=== PATIENT | female | born 1970 | race Caucasian/White ===

== ENCOUNTER 2016-08-01 15:54 | Emergency (ER) | payer SELFPAY ==
[2016-08-01 16:02] VITALS: BMI 31.6
--- NOTE | 2016-08-01 16:21 | DR.GENAD ---
HPI - PCP Primary Care Physician: none - Complaint/Symptoms Chief Complaint Doctors Comments: Headache, feeling dizzy and light headed. 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 Has a history of hypertension was treated for one month but has not had any money and has not been treated for a while. Chief Complaint:: about an hour ago pt started feeling dizzy light headed and shaking with a bad head ache. - Source History Provided: Patient - Mode of Arrival Mode of Arrival: Ambulatory - Timing Onset of Chief Complaint: 08/01/16 PMH - PMH Past Medical History: Yes Past Medical History: Anxiety, Hypertension Past Surgical History: No Surgical History: No History - Family History History of Family Medical Conditions: Yes Family Medical History: Diabetes Mellitus, Hypertension - Social History Does patient currently use any type of tobacco product: Yes Have you used tobacco products in the last 12 months: Yes Type of Tobacco Use: Cigarettes How many years tobacco product used: 20 Does any household member use tobacco: No Alcohol Use: None Do you use any recreational Drugs:: No Lives With: Family Lives Where: Home - infectious screening In the last 2 months have you had wt loss of >10#?: NO Have you had fever, night sweats or hemotysis?: No Have you traveled outside the country in the last 6 months?: No Isolation: Standard ROS - Review of Systems Constitutional: No Symptoms Reported Eyes: No Symptoms Reported ENTM: No Symptoms Reported Respiratoy: No Symptoms Reported Cardiovascular: No Symptoms Reported Gastrointestinal/Abdominal: No Symptoms Reported Genitourinary: No Symptoms Reported Neurological: No Symptoms Reported Musculoskeletal: No Symptoms Reported Integumentary: No Symptoms Reported Hematologic/Lymphatic: No Symptoms Reported Endocrine: No Symptoms Reported Psychiatric: No Symptoms Reported All Other Systems: Reviewed and Negative PE - Vital Signs Vitals: Temperature 98.5 F Pulse Rate 90 Respiratory Rate 18 Blood Pressure [Right Arm] 171/49 Blood Pressure [Standing] 139/79 Blood Pressure [Sitting] 143/68 Blood Pressure [Lying] 139/79 Blood Pressure 155/104 O2 Sat by Pulse Oximetry 99 - General Limitations: No Limitations General Appearance: Alert, In No Apparent Distress - Head Head Exam: Normal Inspection - Eyes Eye exam: Normal Appearance, PERRL, EOMI - ENT ENT Exam: Normal Exam External Ear Exam: Normal External Inspection TM/Canal Exam: Bilateral Normal Nose Exam: Normal Nose Exam Mouth Exam: Normal Inspection Throat Exam: Normal Inspection - Neck Neck Exam: Normal Inspection, Full ROM - Chest Chest Inspection: Normal Inspection - Respiratory Respiratory Exam: Normal Lung Sounds Bilat Respiratory Exam: Bilateral Clear to Auscultation - Cardiovascular Cardiovascular Exam: Regular Rate, Normal Rhythm - Abdominal Exam Abdominal Exam: Normal Inspection Abdominal Tenderness: negative: RUQ, RLQ, LUQ, LLQ, Epigastrium, Suprapubic, Diffuse, Mild, Moderate, Severe, Other - Extremities Extremities Exam: Normal Inspection, Full ROM - Back Back Exam: Normal Inspection - Neurologic Neurological Exam: Alert, Oriented X3, CN II-XII Intact - Psychiatric Psychiatric Exam: Normal Affect, Normal Mood - Skin Skin Exam: Warm, Dry, Intact Course - Reevaluation 1st: Improved ROR - Labs Reviewed Result Diagrams: 08/01/16 16:25 08/01/16 16:25 Laboratory: WBC 11.3 X10^3/uL (3.6-10.0) H 08/01/16 16:25 RBC 4.46 X10^6/uL (3.5-5.4) 08/01/16 16:25 Hgb 13.1 g/dL (12.0-16.0) 08/01/16 16:25 Hct 38.6 % (36.0-47.0) 08/01/16 16:25 MCV 86.6 fL (80.0-100.0) 08/01/16 16:25 MCH 29.4 pg (27.0-34.0) 08/01/16 16:25 MCHC 33.9 g/dL (33.0-35.0) 08/01/16 16:25 RDW 14.4 % (11.6-16.5) 08/01/16 16:25 Plt Count 182 X10^3/uL (150.0-450.0) 08/01/16 16:25 MPV 9.3 fL (7.4-11.0) 08/01/16 16:25 Neut % 60.3 % (42.0-75.0) 08/01/16 16:25 Lymph % 30.9 % (21.0-51.0) 08/01/16 16:25 [place] % 5.6 % (0.0-13.0) 08/01/16 16:25 Eos % 2.0 % (0.9-2.9) 08/01/16 16:25 Baso % 1.2 % (0.2-1.0) H 08/01/16 16:25 Neut # 6.8 x10^3/uL (2.2-4.8) H 08/01/16 16:25 Lymph # 3.5 X10^3/uL (1.3-2.9) H 08/01/16 16:25 [place] # 0.6 x10^3/uL (0.3-0.8) 08/01/16 16:25 Eos # 0.2 x10^3/uL (0.0-0.2) 08/01/16 16:25 Baso # 0.1 X10^3/uL (0.0-0.1) 08/01/16 16:25 Absolute Nucleated RBC 0.0 /100WBC 08/01/16 16:25 Sodium 143 mmol/L (136-145) 08/01/16 16:25 Corrected Sodium TNP 08/01/16 16:25 Potassium 3.8 mmol/L (3.5-5.1) 08/01/16 16:25 Chloride 108 mmol/L (98-107) H 08/01/16 16:25 Carbon Dioxide 26.1 mmol/L (21-32) 08/01/16 16:25 BUN 17 mg/dL (7-18) 08/01/16 16:25 Creatinine 1.05 mg/dL (0.55-1.02) H 08/01/16 16:25 Est GFR (MDRD) Af Amer > 60 (>60) 08/01/16 16:25 Est GFR (MDRD) Non-Af > 60 (>60) 08/01/16 16:25 Glucose 106 mg/dL (65-99) H 08/01/16 16:25 Calcium 8.9 mg/dL (8.5-10.1) 08/01/16 16:25 Corrected Calcium 9.6 mg/dL (8.5-10.1) 08/01/16 16:25 Total Bilirubin 0.20 mg/dL (0.2-1.0) 08/01/16 16:25 AST 18 Units/L (15-37) 08/01/16 16:25 ALT 27 Units/L (12-78) 08/01/16 16:25 Alkaline Phosphatase 72 Units/L (46-116) 08/01/16 16:25 C-Reactive Protein 14.10 mg/L (0-3.0) H 08/01/16 16:25 Total Protein 7.2 g/dL (6.4-8.2) 08/01/16 16:25 Albumin 3.1 g/dL (3.4-5.0) L 08/01/16 16:25 Globulin 4.1 g/dL (2.5-4.5) 08/01/16 16:25 Albumin/Globulin Ratio 0.8 Ratio (1.1-2.1) L 08/01/16 16:25 Specimen Type Clean catch urine 08/01/16 16:25 Urine Color Yellow (YELLOW) 08/01/16 16:25 Urine Appearance Hazy (CLEAR) 08/01/16 16:25 Urine pH 7.0 (5.0 - 8.0) 08/01/16 16:25 Ur Specific [place] 1.015 (1.000-1.030) 08/01/16 16:25 Urine Protein Negative (NEGATIVE) 08/01/16 16:25 Urine Glucose (UA) Negative (NEGATIVE) 08/01/16 16:25 Urine Ketones Negative (NEGATIVE) 08/01/16 16:25 Urine Occult Blood 2+ (NEGATIVE) 08/01/16 16:25 Urine Nitrite Negative (NEGATIVE) 08/01/16 16:25 Urine Bilirubin Negative (NEGATIVE) 08/01/16 16:25 Urine Urobilinogen Normal (NORMAL) 08/01/16 16:25 Ur Leukocyte Esterase 1+ (NEGATIVE) 08/01/16 16:25 Urine RBC 0-2 /HPF (NEGATIVE) 08/01/16 16:25 Urine WBC 0-2 /HPF (NEGATIVE) 08/01/16 16:25 Ur Squamous Epith Cells Few /HPF (NEGATIVE) 08/01/16 16:25 Amorphous Sediment 4+ /HPF (NEGATIVE) 08/01/16 16:25 Urine Bacteria Trace /HPF (NEGATIVE) 08/01/16 16:25 Ur Culture Indicated? No/not indicated 08/01/16 16:25 - XRAY XRAY Interpreted by: Radiologist (CT Brain: No abnormality seen.) - Diagnosis Discharge Problem: Elevated BP without diagnosis of hypertension Headache Qualifiers: Headache type: unspecified Headache chronicity pattern: unspecified pattern Intractability: not intractable Qualified Code(s): R51 - Headache - Discharge Plan Condition: Stable - Follow ups/Referrals Follow ups/Referrals: NFD,None [Primary Care Provider] - 3 days - Instructions
[2016-08-01 16:42] LABS: BILIRUBIN,URINE NEGATIVE (NEGATIVE); BLOOD/HEMOGLOBIN,URINE 2+ (NEGATIVE); GLUCOSE, URINE NEGATIVE (NEGATIVE); KETONES,URINE NEGATIVE (NEGATIVE); LEUKOCYTE ESTERASE ,URINE 1+ (NEGATIVE); NITRITES,URINE NEGATIVE (NEGATIVE); PROTEIN,URINE NEGATIVE (NEGATIVE); UROBILINOGEN,URINE NORMAL (NORMAL)
[2016-08-01 16:45] LABS: BASOPHILS # (AUTO) 0.1 X10^3/uL (0.0-0.1); BASOPHILS % (AUTO) 1.2 % (0.2-1.0); EOSINOPHILS # (AUTO) 0.2 x10^3/uL (0.0-0.2); HEMATOCRIT 38.6 % (36.0-47.0); HEMOGLOBIN 13.1 g/dL (12.0-16.0); LYMPHOCYTES # (AUTO) 3.5 X10^3/uL (1.3-2.9); LYMPHOCYTES % (AUTO) 30.9 % (21.0-51.0); MEAN CORPUSCULAR HEMOGLOBIN 29.4 pg (27.0-34.0); MEAN CORPUSCULAR HGB CONC 33.9 g/dL (33.0-35.0); MEAN CORPUSCULAR VOLUME 86.6 fL (80.0-100.0); MEAN PLATELET VOLUME 9.3 fL (7.4-11.0); MONOCYTES # (AUTO) 0.6 x10^3/uL (0.3-0.8); MONOCYTES % (AUTO) 5.6 % (0.0-13.0); NEUTROPHILS # (AUTO) 6.8 x10^3/uL (2.2-4.8); NEUTROPHILS % (AUTO) 60.3 % (42.0-75.0); PLATELET COUNT 182 X10^3/uL (150.0-450.0); RED BLOOD COUNT 4.46 X10^6/uL (3.5-5.4); RED CELL DISTRIBUTION WIDTH 14.4 % (11.6-16.5); WHITE BLOOD COUNT 11.3 X10^3/uL (3.6-10.0)
[2016-08-01 16:58] LABS: ALANINE AMINOTRANSFERASE 27 Units/L (12-78); ALBUMIN 3.1 g/dL (3.4-5.0); ALKALINE PHOSPHATASE 72 Units/L (46-116); ASPARTATE AMINO TRANSFERASE 18 Units/L (15-37); BLOOD UREA NITROGEN 17 mg/dL (7-18); CALCIUM 8.9 mg/dL (8.5-10.1); CARBON DIOXIDE 26.1 mmol/L (21-32); CHLORIDE 108 mmol/L (98-107); COR CA(FOR HYPOALB) 9.6 mg/dL (8.5-10.1); CREATININE 1.05 mg/dL (0.55-1.02); GLUCOSE 106 mg/dL (65-99); SODIUM 143 mmol/L (136-145); TOTAL PROTEIN 7.2 g/dL (6.4-8.2); eGFR BLACK RACES > 60 (>60); eGFR NON BLACK RACES > 60 (>60)
[2016-08-01 17:03] LABS: APPEARANCE,URINE HAZY (CLEAR); COLOR,URINE YELLOW (YELLOW)
[2016-08-01 17:04] LABS: AMORPHOUS SEDIMENT,UR 4+ /HPF (NEGATIVE); BACTERIA,URINE TRACE /HPF (NEGATIVE); RBC,URINE 0-2 /HPF (NEGATIVE); SQUAMOUS EPITHELIAL CELL,UR FEW /HPF (NEGATIVE)
[2016-08-01] MEDS ORDERED: TORADOL 60 MG VIAL IM ONE (17:28)
[2016-08-01] MEDS ORDERED: TORADOL 60 MG VIAL ONE (17:28)
[2016-08-01 17:56] VITALS: BP 171/49
--- NOTE | 2016-08-01 18:03 | CT ---
HISTORY: Headache Study: CT brain without contrast Comparison: February 21, 2016 Technique: Multiple axial images of the brain were obtained from the skull base to the vertex without administr ation of IV contrast. Coronal and sagittal reformats were performed. Dose reduction procedures were used with MA/kv adjusted for body size. Findings: No acute intraparenchymal hemorrhage or mass can be identified. No extra-axial fluid collections ar e seen. No alteration in the attenuation of the brain parenchyma can be identified to suggest acute or subacute ischemic change. The ventricular system is symmetric and nondilated. The extracranial structures are grossly unremarkable. IMPRESSION: No significant intracranial abnormality Reported By:
== END 2016-08-01 18:20 | disposition home or self-care (01) ==
LOC: ER 16:06
DX: R03.0 Elevated blood-pressure reading, without diagnosis of hypertension (principal); R51 Headache
CPT/HCPCS: 36415; 70450; 80053; 81001; 85025; 86140; 96372; 99283; J1885